=== PATIENT | male | born 1935 | race Caucasian/White ===

== ENCOUNTER 2017-07-23 07:32 | Inpatient (IN) | payer OTHER ==
[~2017-07-23] VITALS: Ht 182.9 cm; Wt 98.1 kg
[~2017-07-23 07:32] MED LIST: ATIVAN0.5 MG PO; DIOVAN160 MG PO; NADOLOL20 MG PO; PRAVACHOL40 MG PO; PROCARDIA XL60 MG PO; VITAMIN D32000 UNIT; ZOCOR40 MG PO
[2017-07-23 08:02] LABS: HEMOGLOBIN 15.3 G/DL (12.5-16.6); MCH 30.6 PG (29.0-34.0); MCHC 31.2 G/DL (30.0-36.0); PLATELET COUNT 163 K/uL (156-360); RBC DIS.WIDTH-CV 14.8 % (11.8-14.6); WHITE BLOOD COUNT 7.2 K/uL (4.1-10.2)
[2017-07-23 08:27] LABS: CHLORIDE 102 MEQ/L (99-109); POTASSIUM 4.3 MEQ/L (3.7-5.4); SODIUM 140 MEQ/L (136-147)
[2017-07-23 08:33] LABS: CREATININE 0.8 MG/DL (0.6-1.3); GFR ESTIMATE (CALCULATED) > 59 mL/min/ (58.99-99999); GLUCOSE 171 mg/dL (70-99); UREA NITROGEN (BUN) 14 mg/dL (9-23)
[2017-07-23 08:36] LABS: TROP-I INTERPRETATION NEGATIVE; TROPONIN-I < 0.01 ng/mL (0.0-0.30)
[2017-07-23 09:54] LABS: APPEARANCE CLEAR ((CLEAR)); BILIRUBIN NEGATIVE; BLOOD NEGATIVE; COLOR STRAW ((YELLOW)); GLUCOSE (STRIP) NEGATIVE; KETONES NEGATIVE; LEUKOCYTES NEGATIVE; NITRITE NEGATIVE; PROTEIN (STRIP) NEGATIVE; SPECIFIC GRAVITY 1.006 (1.000-1.030); UCUL ADDED? NO; UROBILINOGEN 0.2 MG/DL (0.2-1.0)
[2017-07-23] MEDS ORDERED: ATIVAN0.5 MG PO (10:18)
[2017-07-23] MEDS ORDERED: PROCARDIA XL30 MG PO (10:19)
[2017-07-23] MEDS ORDERED: PRAVACHOL80 MG PO (10:20)
[2017-07-23] MEDS ORDERED: COZAAR100 MG PO (10:21)
[2017-07-23] MEDS ORDERED: GLUCOPHAGE500 MG PO (10:21)
[2017-07-23] MEDS ORDERED: TOPROL XL50 MG PO ×2 (10:22→10:23)
[2017-07-23] MEDS ORDERED: XARELTO20 MG PO (10:23)
[2017-07-23] MEDS ORDERED: LASIX20 MG PO (10:24)
[2017-07-23 12:20] VITALS: BP 134/71
[2017-07-23 15:50] LABS: TROP-I INTERPRETATION NEGATIVE; TROPONIN-I 0.01 ng/mL (0.0-0.30)
[2017-07-23 16:04] VITALS: BP 125/72
[2017-07-23 19:36] VITALS: BP 125/81
[2017-07-23 21:24] LABS: TROP-I INTERPRETATION NEGATIVE; TROPONIN-I < 0.01 ng/mL (0.0-0.30)
[2017-07-23 23:46] VITALS: BP 130/76
[2017-07-24] VITALS (7 sets, daily range): BP systolic 104–128; BP diastolic 62–75
[2017-07-24 06:05] LABS: CHLORIDE 97 MEQ/L (99-109); CREATININE 0.8 MG/DL (0.6-1.3); GFR ESTIMATE (CALCULATED) > 59 mL/min/ (58.99-99999); GLUCOSE 140 mg/dL (70-99); POTASSIUM 3.9 MEQ/L (3.7-5.4); SODIUM 142 MEQ/L (136-147); UREA NITROGEN (BUN) 14 mg/dL (9-23)
[2017-07-24 06:06] LABS: CARBON DIOXIDE (BICARBONATE) > 40.0 MEQ/L (20-31)
[2017-07-24 06:32] LABS: BASE EXCESS 10.9 mEq/L (-3 to +3); BICARBONATE 39.5 mEq/L (22-26); CARBOXY HGB 2.3 % (0-5); COMMENTS - BLOOD GASES C+A+; DEVICE HIGH FLOW NC; METHEMOGLOBIN 1.3 % (0-1.5); O2 FLOW 14 L/MIN; PCO2 70 mm Hg (35-45); PO2 58 mm Hg (80-100); SITE RR; TOTAL RESP RATE 18 resp/min; pH 7.36 (7.35-7.45)
[2017-07-25 03:03] VITALS: BP 118/70
[2017-07-25 03:10] LABS: BASE EXCESS 14.2 mEq/L (-3 to +3); BICARBONATE 43.2 mEq/L (22-26); CARBOXY HGB 2.3 % (0-5); METHEMOGLOBIN 1.4 % (0-1.5); PCO2 73 mm Hg (35-45); pH 7.38 (7.35-7.45)
[2017-07-25 03:11] LABS: COMMENTS - BLOOD GASES C+A+; DEVICE NCHH; FI02 100 %; O2 FLOW 70 L/MIN; PO2 75 mm Hg (80-100); SITE RR
[2017-07-25 05:53] LABS: CHLORIDE 93 mEq/L (99-109); POTASSIUM 3.5 mEq/L (3.7-5.4); SODIUM 144 mEq/L (136-147)
[2017-07-25 05:54] LABS: GLUCOSE 183 mg/dL (70-99)
[2017-07-25 05:58] LABS: CREATININE 0.8 mg/dL (0.6-1.3); GFR ESTIMATE (CALCULATED) > 59 mL/min/ (58.99-99999)
[2017-07-25 05:59] LABS: UREA NITROGEN (BUN) 16 mg/dL (9-23)
[2017-07-25 07:06] VITALS: BP 128/74
[2017-07-25 11:09] VITALS: BP 102/70
[2017-07-25 12:06] LABS: BASOPHIL (%) 0.5 % (0-1); EOSINOPHIL (%) 0.9 % (0-5); EOSINOPHIL COUNT 0.1 K/uL (0-0.3); HEMATOCRIT 45.1 % (38.0-50.0); HEMOGLOBIN 13.5 G/DL (12.5-16.6); IMMATURE GRANULOCYTE (%) 0.2 % (0.0-0.7); LYMPHOCYTE COUNT 1.8 K/uL (1.0-2.8); MCH 29.4 PG (29.0-34.0); MCHC 29.9 G/DL (30.0-36.0); MCV 98.3 FL (86-99); MONOCYTE (%) 9.6 % (3-12); MONOCYTE COUNT 0.8 K/uL (0-0.8); NEUTROPHIL (%) 68.8 % (45-76); PLATELET COUNT 162 K/uL (156-360); RBC DIS.WIDTH-CV 14.6 % (11.8-14.6); RBC DIS.WIDTH-SD 52.8 % (39-53); RED BLOOD COUNT 4.59 M/uL (4.00-5.50); WHITE BLOOD COUNT 8.7 K/uL (4.1-10.2)
[2017-07-25 15:42] VITALS: BP 137/68
[2017-07-25 19:50] VITALS: BP 104/73
[2017-07-26 00:55] VITALS: BP 128/72
[2017-07-26 02:40] VITALS: BP 129/86
[2017-07-26 06:35] LABS: CHLORIDE 94 MEQ/L (99-109); CREATININE 0.8 MG/DL (0.6-1.3); GFR ESTIMATE (CALCULATED) > 59 mL/min/ (58.99-99999); GLUCOSE 246 mg/dL (70-99); SODIUM 140 MEQ/L (136-147); UREA NITROGEN (BUN) 23 mg/dL (9-23)
[2017-07-26 08:30] VITALS: BP 112/68
[2017-07-26 11:23] VITALS: BP 121/71
[2017-07-26 16:52] VITALS: BP 121/79
[2017-07-26 19:29] VITALS: BP 130/77
[2017-07-27 00:01] VITALS: BP 124/74
[2017-07-27 05:30] VITALS: BP 129/81
[2017-07-27 07:01] LABS: CHLORIDE 95 MEQ/L (99-109); CREATININE 0.7 MG/DL (0.6-1.3); GFR ESTIMATE (CALCULATED) > 59 mL/min/ (58.99-99999); GLUCOSE 199 mg/dL (70-99); POTASSIUM 4.8 MEQ/L (3.7-5.4); SODIUM 143 MEQ/L (136-147); UREA NITROGEN (BUN) 30 mg/dL (9-23)
[2017-07-27 07:03] LABS: CARBON DIOXIDE (BICARBONATE) > 40.0 MEQ/L (20-31)
[2017-07-27 08:05] LABS: BASE EXCESS 13.5 mEq/L (-3 to +3); BICARBONATE 41.8 mEq/L (22-26); CARBOXY HGB 1.7 % (0-5); METHEMOGLOBIN 1.6 % (0-1.5); PO2 65 mm Hg (80-100); pH 7.41 (7.35-7.45)
[2017-07-27 08:06] LABS: COMMENTS - BLOOD GASES A+C+; DEVICE HFNC; O2 FLOW 12 L/MIN; PCO2 66 mm Hg (35-45); SITE RR
[2017-07-27 08:22] VITALS: BP 136/72
[2017-07-27 12:06] VITALS: BP 117/69
[2017-07-27 17:26] VITALS: BP 121/73
[2017-07-27 21:00] VITALS: BP 130/86
[2017-07-28 00:10] VITALS: BP 144/87
[2017-07-28 04:20] VITALS: BP 129/91
[2017-07-28 06:39] LABS: CHLORIDE 94 MEQ/L (99-109); CREATININE 0.7 MG/DL (0.6-1.3); GFR ESTIMATE (CALCULATED) > 59 mL/min/ (58.99-99999); GLUCOSE 200 mg/dL (70-99); POTASSIUM 4.6 MEQ/L (3.7-5.4); SODIUM 140 MEQ/L (136-147); UREA NITROGEN (BUN) 29 mg/dL (9-23)
[2017-07-28 07:22] VITALS: BP 118/73
[2017-07-28 11:35] VITALS: BP 121/84
[2017-07-28 14:58] VITALS: BP 140/89
[2017-07-28 21:34] VITALS: BP 138/89
[2017-07-29 00:44] VITALS: BP 138/86
[2017-07-29 05:56] LABS: CHLORIDE 97 MEQ/L (99-109); CREATININE 0.7 MG/DL (0.6-1.3); GFR ESTIMATE (CALCULATED) > 59 mL/min/ (58.99-99999); GLUCOSE 128 mg/dL (70-99); POTASSIUM 4.4 MEQ/L (3.7-5.4); SODIUM 141 MEQ/L (136-147); UREA NITROGEN (BUN) 22 mg/dL (9-23)
[2017-07-29 09:05] VITALS: BP 123/82
[2017-07-29 12:58] VITALS: BP 132/85
[2017-07-29 16:01] LABS: HEMOGLOBIN A1c (GLYCOHEMOGLOB) 6.4 % (Below 5.7)
[2017-07-29 17:58] VITALS: BP 144/76
[2017-07-29 21:30] VITALS: BP 136/86
[2017-07-29 23:52] VITALS: BP 154/86
[2017-07-30 03:47] VITALS: BP 117/70
[2017-07-30 06:36] LABS: BASOPHIL (%) 0 % (0-1); EOSINOPHIL (%) 0.1 % (0-5); HEMATOCRIT 47.2 % (38.0-50.0); HEMOGLOBIN 14.8 G/DL (12.5-16.6); IMMATURE GRANULOCYTE (%) 0.5 % (0.0-0.7); LYMPHOCYTE (%) 15.7 % (15-42); LYMPHOCYTE COUNT 1.4 K/uL (1.0-2.8); MCH 30.1 PG (29.0-34.0); MCHC 31.4 G/DL (30.0-36.0); MCV 96.1 FL (86-99); MONOCYTE (%) 7.7 % (3-12); MONOCYTE COUNT 0.7 K/uL (0-0.8); NEUTROPHIL COUNT 6.6 K/uL (1.8-6.4); PLATELET COUNT 153 K/uL (156-360); RBC DIS.WIDTH-CV 14.2 % (11.8-14.6); RBC DIS.WIDTH-SD 50.1 % (39-53); RED BLOOD COUNT 4.91 M/uL (4.00-5.50); WHITE BLOOD COUNT 8.7 K/uL (4.1-10.2)
[2017-07-30 06:55] LABS: ALBUMIN 3.6 G/DL (3.2-4.8); ALKALINE PHOSPHATASE 56 IU/L (3-129); ALT (GPT) 56 IU/L (3-49); AST (GOT) 27 IU/L (2-34); CHLORIDE 99 MEQ/L (99-109); CREATININE 0.6 MG/DL (0.6-1.3); GFR ESTIMATE (CALCULATED) > 59 mL/min/ (58.99-99999); GLUCOSE 136 mg/dL (70-99); POTASSIUM 4.7 MEQ/L (3.7-5.4); SODIUM 142 MEQ/L (136-147); TOTAL BILIRUBIN 0.8 MG/DL (0.0-1.0); UREA NITROGEN (BUN) 23 mg/dL (9-23)
[2017-07-30 07:50] VITALS: BP 124/81
[2017-07-30] MEDS ORDERED: DULERA 100 MCG/13 GM IH (10:58)
[2017-07-30] MEDS ORDERED: SPIRIVA RESPIMAT4 GM IH (10:58)
[2017-07-30] MEDS ORDERED: PREDNISONE10 MG PO (10:58)
[2017-07-30] MEDS ORDERED: COZAAR25 MG PO (10:58)
[2017-07-30] MEDS ORDERED: VENTOLIN HFA18 GM IH (10:58)
[2017-07-30] MEDS ORDERED: CEFTIN500 MG PO (10:58)
[2017-08-04 03:20] LABS: Cryoglobulin, Qualitative None Detected (None Detected)
== END 2017-07-30 14:07 | disposition home or self-care (01) | DRG 291 ==
LOC: EME 07:32 → EDOF 09:11 → 4EAST 09:11 → ENRESERV 09:18 → EDOF 09:18 → ENRESERV 11:25 → 4EAST 12:14 → ENRESERV 07-29 20:14 → 5SOUTH 07-29 22:21 → ENPENDDIS 07-30 12:10 → 5SOUTH 07-30 14:07
PROVIDERS: Emergency Medicine; Hospitalist; Internal Medicine; Internal Medicine Cardiovascular Disease
DX: I50.31 Acute diastolic (congestive) heart failure (principal); J96.01 Acute respiratory failure with hypoxia; J18.9 Pneumonia, unspecified organism; J44.0 Chronic obstructive pulmonary disease with (acute) lower respiratory infection; I13.0 Hypertensive heart and chronic kidney disease with heart failure and stage 1 through stage 4 chronic kidney disease, or unspecified chronic kidney disease; I48.0 Paroxysmal atrial fibrillation; I27.20 Pulmonary hypertension, unspecified; E78.5 Hyperlipidemia, unspecified; I48.2 Chronic atrial fibrillation; E11.22 Type 2 diabetes mellitus with diabetic chronic kidney disease; K21.9 Gastro-esophageal reflux disease without esophagitis; N18.9 Chronic kidney disease, unspecified; Z77.22 Contact with and (suspected) exposure to environmental tobacco smoke (acute) (chronic); E66.9 Obesity, unspecified; R16.0 Hepatomegaly, not elsewhere classified; I71.2 Thoracic aortic aneurysm, without rupture; G47.30 Sleep apnea, unspecified; Z79.01 Long term (current) use of anticoagulants; Z85.46 Personal history of malignant neoplasm of prostate; Z87.891 Personal history of nicotine dependence; Z90.79 Acquired absence of other genital organ(s); Z68.29 Body mass index [BMI] 29.0-29.9, adult; Z79.84 Long term (current) use of oral hypoglycemic drugs; Z79.51 Long term (current) use of inhaled steroids
CPT/HCPCS: 36600; 71045; 71046; 80048; 80053; 81003; 82595 90; 82803; 82948; 83036; 83880; 84145 90; 84484; 85025; 85027; 85730; 93005; 93306; 94010; 94640; 94640 76; 94799; 99202; 99281; 99285; J0696; J1815; J1940; J2920; J2930; J7512